=== PATIENT | male | born 1955 | race Caucasian/White ===

== ENCOUNTER 2020-08-23 11:31 | Outpatient (REF) | payer OTHER, SELFPAY | END 2020-08-23 11:32 | disposition home or self-care (01) | LOC: HO.MDS 11:31 | PROVIDERS: PCP Internal Medicine; Visit Provider Hospitalist | DX: J45.909 Unspecified asthma, uncomplicated (principal) | CPT/HCPCS: 96372; J0517 ==

== ENCOUNTER 2020-10-18 12:08 | Outpatient (REF) | payer OTHER, SELFPAY | END 2020-10-18 12:09 | disposition home or self-care (01) | LOC: HO.MDS 12:08 | PROVIDERS: PCP Internal Medicine; Visit Provider Hospitalist | DX: J45.909 Unspecified asthma, uncomplicated (principal) | CPT/HCPCS: 96372; J0517 ==

== ENCOUNTER 2020-12-13 09:24 | Outpatient (REF) | payer OTHER, SELFPAY | END 2020-12-13 09:25 | disposition home or self-care (01) | LOC: HO.MDS 09:24 | PROVIDERS: PCP Internal Medicine; Visit Provider Hospitalist | DX: J45.50 Severe persistent asthma, uncomplicated (principal) | CPT/HCPCS: 96372; J0517 ==

== ENCOUNTER 2021-03-01 08:12 | Outpatient (REF) | payer OTHER, SELFPAY | END 2021-03-01 08:13 | disposition home or self-care (01) | LOC: HO.MDS 08:12 | PROVIDERS: PCP Internal Medicine; Visit Provider Hospitalist | DX: J45.50 Severe persistent asthma, uncomplicated (principal) | CPT/HCPCS: 96372; J0517 ==

== ENCOUNTER → 2021-03-07 14:27 | Outpatient (BNVA) | payer OTHER, SELFPAY | PROVIDERS: PCP Internal Medicine; Visit Provider Hospitalist ==

== ENCOUNTER 2021-05-09 07:23 | Outpatient (REF) | payer OTHER, SELFPAY | END 2021-05-09 07:24 | disposition home or self-care (01) | LOC: HO.MDS 07:23 | PROVIDERS: PCP Internal Medicine; Visit Provider Hospitalist | DX: J45.50 Severe persistent asthma, uncomplicated (principal) | CPT/HCPCS: 96372; J0517 ==

== ENCOUNTER 2021-07-04 08:10 | Outpatient (REF) | payer OTHER, SELFPAY | END 2021-07-04 08:11 | disposition home or self-care (01) | LOC: HO.MDS 08:10 | PROVIDERS: PCP Internal Medicine; Visit Provider Hospitalist | DX: J45.50 Severe persistent asthma, uncomplicated (principal) | CPT/HCPCS: 96372; J0517 ==

== ENCOUNTER 2021-08-29 08:46 | Outpatient (REF) | payer OTHER, SELFPAY | END 2021-08-29 08:47 | disposition home or self-care (01) | LOC: HO.MDS 08:46 | PROVIDERS: PCP Internal Medicine; Visit Provider Hospitalist | DX: J45.50 Severe persistent asthma, uncomplicated (principal) | CPT/HCPCS: 96372; J0517 ==

== ENCOUNTER → 2022-04-11 11:04 | Outpatient (BNVA) | payer OTHER, SELFPAY | PROVIDERS: PCP Internal Medicine; Visit Provider Hospitalist | DX: Z13.89 Encounter for screening for other disorder (principal) ==